=== PATIENT | male | born 1990 | race African-American/Black ===

== ENCOUNTER 2019-01-10 01:02 | Emergency (ER) | payer MEDICAID ==
[~2019-01-10] VITALS: Ht 175.3 cm; Wt 72.6 kg
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
--- NOTE | 2019-01-10 01:39 | NUR ---
[facility] called for higher level of care.
[2019-01-10 01:53] LABS: BASOPHILS # (AUTO) 0.1 /CMM (0.0-0.2); BASOPHILS % (AUTO) 0.7 % (0.0-2.0); EOSINOPHILS % (AUTO) 0.4 % (0.0-6.0); HEMATOCRIT 44 % (39-51); HEMOGLOBIN 14.5 g/dL (13.5-17.5); LYMPHOCYTES # (AUTO) 3.1 /CMM (0.8-4.8); LYMPHOCYTES % (AUTO) 44.8 % (20.0-44.0); MEAN CORPUSCULAR HGB CONC 33 g/dl (31.0-36.0); MEAN CORPUSCULAR VOLUME 82 fL (80-96); MONOCYTES # (AUTO) 0.4 /CMM (0.1-1.30); MONOCYTES % (AUTO) 5.8 % (2.0-12.0); NEUTROPHILS # (AUTO) 3.3 /CMM (1.8-8.9); NEUTROPHILS % (AUTO) 48.3 % (43.0-81.0); PLATELET COUNT (AUTO) 208 /CMM (150-450); RED BLOOD CELL COUNT(AUTO) 5.36 MIL/uL (4.5-6.0); WHITE BLOOD COUNT (AUTO) 6.9 K/uL (4.3-11.0)
--- NOTE | 2019-01-10 01:56 | NUR ---
radiology at bedside for xray
[2019-01-10] MEDS ORDERED: TDAP [DIPH/PERTUSSIS/TET] 0.5 ML VIAL IM ONE ×2 (01:57→02:00)
[2019-01-10] MEDS ORDERED: MORPHINE SULFATE INJ 2 MG/ML DISP.SYRIN IV ONE (02:00)
[2019-01-10 02:06] LABS: CALCIUM, SERUM 9.8 mg/dL (8.5-10.1)
--- NOTE | 2019-01-10 03:06 | NUR ---
[place] [facility] [place]
--- NOTE | 2019-01-10 03:25 | NUR ---
[facility] called, no beds available.
[2019-01-10] MEDS ORDERED: LIDOCAINE HCL/PF 1% 30 ML SDV ONE (03:32)
--- NOTE | 2019-01-10 04:32 | NUR ---
dr. hernández at bedside for lac repair.
[2019-01-10] MEDS ORDERED: CEPHALEXIN MONOHYDRATE 500 MG CAPSULE PO ONE ×2 (04:41→05:00)
--- NOTE | 2019-01-10 05:46 | NUR ---
Patient does not wish to proceed with medical care recommended by Dr. Mauro. Patient given information related to possible complications, up to and including , which could occur as a result of leaving the hospital at this time. Patient verbalizes understanding of risks involved due to leaving against medical advice. Patient has signed AMA form. Pt ambulatory with a steady gait
--- NOTE | 2019-01-10 05:46 | NUR ---
Note keerthi in EDM - 01/10/19 at 0547 by PAO Patient discharged to home in stable condition. Written and verbal after care instructions given. Patient verbalizes understanding of instruction.IV removed. Catheter intact and site benign. Pressure and 4x4 applied to site. No bleeding noted.Pt ambulatory with a steady gait
[2019-01-10 05:47] VITALS: BP 132/79
== END 2019-01-10 05:48 | disposition left against medical advice (07) ==
LOC: ER 01:05
DX: S66.221A Laceration of extensor muscle, fascia and tendon of right thumb at wrist and hand level, initial encounter (principal); F10.10 Alcohol abuse, uncomplicated; Y90.6 Blood alcohol level of 120-199 mg/100 ml; W22.8XXA Striking against or struck by other objects, initial encounter; Y93.89 Activity, other specified; Y92.89 Other specified places as the place of occurrence of the external cause; Y99.8 Other external cause status
CPT/HCPCS: 12002; 36415; 73130; 80048; 80307; 85025; 85610; 85730; 90471; 90715; 99284; A6403; J3490; G0480